=== PATIENT | male | born 1990 | race Two or more races ===

== ENCOUNTER 2023-03-29 16:34 | Emergency (ER) | payer BC, OTHER ==
[~2023-03-29] VITALS: Ht 165.1 cm; Wt 81.6 kg
--- NOTE | 2023-03-29 17:08 | NUR ---
Dr Mg at the [facility] for MSE.
[2023-03-29] MEDS ORDERED: KETOROLAC TROMETHAMINE 15 MG INJ IVP ONE (17:15)
[2023-03-29 17:26] LABS: HEMATOCRIT 42.1 % (36.7-47.1); MEAN CORPUSCULAR HEMOGLOBIN 29.6 uug (23.8-33.4); PLATELET COUNT (AUTO) 400 K/uL (152-348)
[2023-03-29] MEDS ORDERED: KETOROLAC TROMETHAMINE 15 MG INJ ONE (17:33)
[2023-03-29 17:37] LABS: CREATININE 0.8 mg/dL (0.6-1.3); POTASSIUM 3.7 mmol/L (3.5-5.1)
[2023-03-29 17:48] LABS: BILIRUBIN,TOTAL 1.1 mg/dL (0.2-1.0)
[2023-03-29] MEDS ORDERED: COLCHICINE 0.6 MG TABLET ONE (18:12)
[2023-03-29] MEDS ORDERED: NAPR-1192 PO (18:15)
[2023-03-29] MEDS ORDERED: COLCHICINE 0.6 MG TABLET PO ONE (18:15)
--- NOTE | 2023-03-29 18:23 | NUR ---
IV removed. Catheter intact and site benign. Pressure and 4x4 gauze applied to site. No bleeding noted.
[2023-03-29 18:25] VITALS: BP 122/68
--- NOTE | 2023-03-29 19:02 | NUR ---
Patient discharged to home in stable condition. Written and verbal after care instructions given. Patient verbalizes understanding of instructions. Stressed follow up or return to ER for worsening s/s.
== END 2023-03-29 19:02 | disposition home or self-care (01) ==
LOC: ER 16:34
DX: M10.9 Gout, unspecified (principal); M79.675 Pain in left toe(s); Z88.8 Allergy status to other drugs, medicaments and biological substances; Z91.013 Allergy to seafood; Z79.899 Other long term (current) drug therapy
CPT/HCPCS: 99284; 96374; 80053; 84550; 85025; 36415; 73630; J1885; A4663

== ENCOUNTER 2024-01-15 09:46 | Emergency (ER) | payer BC, OTHER ==
[~2024-01-15] VITALS: Ht 162.6 cm; Wt 81.6 kg
[~2024-01-15 09:46] MED LIST: NAPR-1192 PO
[2024-01-15] MEDS ORDERED: COLC0.6C3 PO (10:29)
[2024-01-15] MEDS ORDERED: INDO-12 PO (10:29)
[2024-01-15 10:41] VITALS: BP 121/77; TEMP 98.2; O2SAT 98
== END 2024-01-15 10:42 | disposition home or self-care (01) ==
LOC: ER 09:46
DX: M10.9 Gout, unspecified (principal); Z79.899 Other long term (current) drug therapy
CPT/HCPCS: A4606; A4663